=== PATIENT | female | born 1965 | race Caucasian/White ===

== ENCOUNTER 2019-05-09 20:35 | Emergency (ER) | payer MEDICAID ==
[~2019-05-09] VITALS: Ht 167.6 cm; Wt 83.0 kg
--- NOTE | 2019-05-09 22:15 | NUR ---
PT TO ROOM FROM LOBBY VIA WHEELCHAIR
--- NOTE | 2019-05-09 22:23 | NUR ---
PT REPORTS CONSTANT ACHING EPIGASTRIC PAIN X A FEW DAYS WORSENING TODAY. +N/V TODAY. DENIES DIARRHEA/INCREASE IN PAIN WITH FOOD/FEVER/CP/SOB. DENIES BLOOD IN EMESIS OR STOOL BP/SPO2 MONITORING IN PLACE. VSS. UA COLLECTED AND SENT TO LAB.
[2019-05-09] MEDS ORDERED: SODIUM CHLORIDE FLUSH 10ML SYR IVF ONE (22:30)
[2019-05-09] MEDS ORDERED: ONDANSETRON 2MG/ML, 2ML IVPush ONE (22:30)
[2019-05-09] MEDS ORDERED: KETOROLAC 30 MG/1 ML IVPush ONE (22:30)
[2019-05-09] MEDS ORDERED: ONDANSETRON 2MG/ML, 2ML ONE (22:34)
[2019-05-09] MEDS ORDERED: KETOROLAC 30 MG/1 ML ONE (22:34)
[2019-05-09 22:41] LABS: MICROSCOPIC NOT IND
[2019-05-09 22:43] LABS: CULTURE INDICATED? NO
--- NOTE | 2019-05-09 22:57 | NUR ---
IV ESTABLISHED, LABS DRAWN. PT MEDICATED PER EMAR FOR 8/10 PAIN AND NAUSEA
[2019-05-09 23:19] LABS: BASOPHILS % (AUTO) 0 % (0-1); EOSINOPHILS % (AUTO) 0 % (1-7); LYMPHOCYTES # (AUTO) 0.53 x10^3/uL (1-3.4); LYMPHOCYTES % (AUTO) 7 % (22-44); MD NO; MEAN CORPUSCULAR HEMOGLOBIN 30.3 pg (27.0-34.8); MEAN CORPUSCULAR HGB CONC 34.1 g/dL (32.4-35.8); MEAN CORPUSCULAR VOLUME 88.8 fL (80-100); MEAN PLATELET VOLUME 8.8 fL (7.4-10.4); MONOCYTES # (AUTO) 0.51 x10^3/uL (0.2-0.8); MONOCYTES % (AUTO) 6 % (2-9); NEUTROPHILS # (AUTO) 6.89 x10^3/uL (1.8-6.8); NEUTROPHILS % (AUTO) 87 % (42-75); PLATELET COUNT 202 x10^3/uL (130-400); RED CELL DISTRIBUTION WIDTH 13.3 % (9.6-15.2)
[2019-05-09 23:28] LABS: ALANINE AMINOTRANSFERASE 16 U/L (12-78); ALBUMIN 3.4 g/dL (3.4-5.0); ANION GAP 6 mmol/L (5-15); CALCIUM 8.6 mg/dL (8.5-10.1); CHLORIDE 111 mmol/L (98-107); CREATININE 0.94 mg/dL (0.55-1.02)
[2019-05-09 23:31] LABS: ALKALINE PHOSPHATASE 62 U/L (45-117); BILIRUBIN,TOTAL 0.7 mg/dL (0.2-1.0); TOTAL PROTEIN 6.9 g/dL (6.4-8.2)
--- NOTE | 2019-05-09 23:40 | NUR ---
PT REPORTS MILD IMPROVEMENT PAIN/NAUSEA. CHART UP FOR RECHECK
[2019-05-10] MEDS ORDERED: FAMOTIDINE 20 MG/2 ML IVPush ONE
[2019-05-10] MEDS ORDERED: HYDROcodone/APAP 5/325 TABLET PO ONE
[2019-05-10] MEDS ORDERED: PANTOPRAZOLE 40 MG IV IVPush SCH
[2019-05-10] MEDS ORDERED: HYDROcodone/APAP 5/325 TABLET ONE (00:02)
[2019-05-10] MEDS ORDERED: PANTOPRAZOLE 40 MG IV ONE (00:02)
[2019-05-10] MEDS ORDERED: FAMOTIDINE 20 MG/2 ML ONE (00:02)
[2019-05-10 00:09] VITALS: BP 133/84
== END 2019-05-10 00:54 | disposition home or self-care (01) ==
LOC: ED 21:35
DX: R10.12 Left upper quadrant pain (principal); R11.2 Nausea with vomiting, unspecified; R19.7 Diarrhea, unspecified
CPT/HCPCS: 36415; 76700; 80053; 81003; 83690; 85025; 96374; 96375; 99284; C9113; J1885; J2405; J3490